=== PATIENT | male | born 1960 | race African-American/Black ===

== ENCOUNTER 2016-08-29 13:53 | Emergency (ER) | payer MEDICARE, MEDICAID ==
[~2016-08-29 13:53] MED LIST: ALBUTEROL17 GM INH; ANTI-HYPERTENSIVE PO; ATENOLOL50 MG PO; DORYX100 MG PO; FLEXERIL10 MG PO; GABAPENTIN300 MG PO; GLUCOPHAGE XR500 M1 PO; JANUVIA50 MG PO; KEFLEX500 M4 PO; LANTUS100 UNITS/ SC; LISINOPRIL-HCT1 EAC2 PO; LISINOPRIL40 MG PO; METFORMIN HCL500 MG PO; NEURONTIN300 M1 PO; NORCO 5-325 TA1 EACH PO; NORCO 5/325 TAB1 TAB PO; NORCO 5/3251 TA1 PO; NORVASC10 MG PO; NOVOLOG MI100 UNITS/; OMEPRAZOLE20 M4 PO; PAROXETINE HCL40 M1 PO; PRAVACHOL40 MG PO; PRAVASTATIN SOD40 M1 PO; PROVENTIL HFA6.7 G1 IH; THERA M PLUS PO; TRAZODONE HCL100 M1 PO; TRAZODONE HCL150 MG PO; ZOFRAN4 M2 PO
[2016-08-30] MEDS ORDERED: AUGMENTIN 875-1 EAC2 PO (12:56)
[2016-08-30] MEDS ORDERED: NORCO 5-325 TA1 EACH PO (12:56)
[2016-12-08] MEDS ORDERED: LANTUS SOL100 UNIT/1 SC (08:33)
[2016-12-08] MEDS ORDERED: NOVOLOG100 UNITS/ (08:33)
[2016-12-08] MEDS ORDERED: AUGMENTIN 875-1 EAC2 PO (09:55)
[2016-12-08] MEDS ORDERED: NORCO 5-325 TA1 EACH PO (09:55)
[2016-12-08] MEDS ORDERED: LISINOPRIL-HCT1 EAC2 PO (09:55)
== END 2016-08-29 18:00 | disposition left against medical advice (07) ==
LOC: EDMED 13:53
DX: Z53.21 Procedure and treatment not carried out due to patient leaving prior to being seen by health care provider (principal)

== ENCOUNTER 2016-08-30 09:59 | Emergency (ER) | payer MEDICARE, MEDICAID ==
[2016-08-30 11:36] LABS: BASO % 0.9 % (0-2); BASO ABSOLUTE COUNT 0.1 tho/cmm (0.0-0.2); EOSINOPHIL ABSOLUTE COUNT 0.2 tho/cmm (0.0-0.7); HCT-HEMATOCRIT 46.7 % (36.0-53.5); HGB-HEMOGLOBIN 16.5 gm/dl (13.5-17.0); IMMATURE GRANULOCYTES ABSOLUTE 0.01 tho/cmm (0-0.03); IMMATURE GRANULOCYTES PERCENT 0.2 % (0-0.3); LYMPH % 47.3 % (20-45); LYMPH ABSOLUTE COUNT 2.6 tho/cmm (0.8-4.5); MCH (MEAN CORPUSCULAR HGB) 34.4 pg (28.0-32.0); MCHC MEAN CORPUSCULAR HGB CONC 35.3 % (32.0-36.0); MCV (MEAN CELL VOLUME) 97.3 fl (82.0-96.0); MEAN PLATELET VOLUME 11.5 cmc (9.4-12.4); MONO % 8.4 % (0-12); MONOCYTE ABSOLUTE COUNT 0.5 tho/cmm (0.0-1.2); NEUTROPHIL ABSOLUTE COUNT 2.1 tho/cmm (1.6-8.0); NEUTROPHIL-AUTOMATED 2.1 tho/cmm (1.6-8.0); NEUTROPHILS % 39.2 % (40-80); PLATELET COUNT 110 tho/cmm (150-450); RED CELL DISTRIBUTION WIDTH 12.4 % (12.4-16.4); WHITE BLOOD COUNT 5.5 tho/cmm (4.0-10.0)
[2016-08-30 11:43] LABS: ANION GAP 10 mmol/L (0-20); BLOOD UREA NITROGEN 16 mg/dl (6-24); CALCIUM 8.8 mg/dl (8.5-10.5); CARBON DIOXIDE-VENOUS 31 mmol/L (22-32); CHLORIDE 104 mmol/l (96-110); CREATININE 1.21 mg/dl (0.60-1.30); GLUCOSE 139 mg/dL (70-110); SODIUM 140 mmol/L (135-145); eGFR VALUE FOR BLACK 77 mL/Min
[2016-08-30 11:48] LABS: POTASSIUM 4.6 mmol/L (3.7-5.1)
[2016-08-30] MEDS ORDERED: NORCO 5-325 TA1 EACH PO (12:56)
[2016-08-30] MEDS ORDERED: AUGMENTIN 875-1 EAC2 PO (12:56)
[2016-12-08] MEDS ORDERED: LANTUS SOL100 UNIT/1 SC (08:33)
[2016-12-08] MEDS ORDERED: NOVOLOG100 UNITS/ (08:33)
[2016-12-08] MEDS ORDERED: NORCO 5-325 TA1 EACH PO (09:55)
[2016-12-08] MEDS ORDERED: LISINOPRIL-HCT1 EAC2 PO (09:55)
[2016-12-08] MEDS ORDERED: AUGMENTIN 875-1 EAC2 PO (09:55)
== END 2016-08-30 13:08 ==
LOC: EDMED 09:59
PROVIDERS: Physician Assistant
DX: R68.84 Jaw pain (principal); E11.9 Type 2 diabetes mellitus without complications; F17.210 Nicotine dependence, cigarettes, uncomplicated; Z79.4 Long term (current) use of insulin
CPT/HCPCS: Q9967

== ENCOUNTER 2016-10-06 07:56 | Emergency (ER) | payer MEDICARE, MEDICAID ==
[~2016-10-06 07:56] MED LIST changes: +AUGMENTIN 875-1 EAC2 PO
[2016-10-06 08:53] LABS: BASO ABSOLUTE COUNT 0.1 tho/cmm (0.0-0.2); EOS % 5.7 % (0-7); EOSINOPHIL ABSOLUTE COUNT 0.3 tho/cmm (0.0-0.7); HCT-HEMATOCRIT 47.1 % (36.0-53.5); HGB-HEMOGLOBIN 16.6 gm/dl (13.5-17.0); LYMPH % 47.5 % (20-45); LYMPH ABSOLUTE COUNT 2.7 tho/cmm (0.8-4.5); MCHC MEAN CORPUSCULAR HGB CONC 35.2 % (32.0-36.0); MCV (MEAN CELL VOLUME) 96.5 fl (82.0-96.0); MEAN PLATELET VOLUME 11.4 cmc (9.4-12.4); MONOCYTE ABSOLUTE COUNT 0.5 tho/cmm (0.0-1.2); NEUTROPHIL ABSOLUTE COUNT 2.2 tho/cmm (1.6-8.0); NEUTROPHIL-AUTOMATED 2.2 tho/cmm (1.6-8.0); NEUTROPHILS % 37.8 % (40-80); PLATELET COUNT 111 tho/cmm (150-450); RED BLOOD COUNT 4.88 mil/cmm (4.40-5.70); RED CELL DISTRIBUTION WIDTH 12.3 % (12.4-16.4); WHITE BLOOD COUNT 5.8 tho/cmm (4.0-10.0)
[2016-10-06 09:18] LABS: ANION GAP 11 mmol/L (0-20); BLOOD UREA NITROGEN 13 mg/dl (6-24); CALCIUM 8.7 mg/dl (8.5-10.5); CARBON DIOXIDE-VENOUS 29 mmol/L (22-32); CHLORIDE 106 mmol/l (96-110); CREATININE 1.17 mg/dl (0.60-1.30); GLUCOSE 74 mg/dL (70-110); POTASSIUM 4.1 mmol/L (3.7-5.1); SODIUM 142 mmol/L (135-145); eGFR VALUE FOR BLACK 80 mL/Min
[2016-10-06] MEDS ORDERED: AUGMENTIN 875-1 EAC2 PO (09:58)
[2016-10-06] MEDS ORDERED: NORCO 5/3251 TAB PO (09:58)
[2016-12-08] MEDS ORDERED: NOVOLOG100 UNITS/ (08:33)
[2016-12-08] MEDS ORDERED: LANTUS SOL100 UNIT/1 SC (08:33)
[2016-12-08] MEDS ORDERED: NORCO 5-325 TA1 EACH PO (09:55)
[2016-12-08] MEDS ORDERED: AUGMENTIN 875-1 EAC2 PO (09:55)
[2016-12-08] MEDS ORDERED: LISINOPRIL-HCT1 EAC2 PO (09:55)
== END 2016-10-06 10:10 ==
LOC: EDMED 07:56
PROVIDERS: Emergency Medicine
DX: K11.20 Sialoadenitis, unspecified (principal); E11.40 Type 2 diabetes mellitus with diabetic neuropathy, unspecified; Z79.4 Long term (current) use of insulin; Z79.899 Other long term (current) drug therapy
CPT/HCPCS: J7030; Q9967

== ENCOUNTER 2016-10-24 12:00 | Emergency (ER) | payer MEDICARE, MEDICAID ==
[~2016-10-24 12:00] MED LIST changes: +NORCO 5/3251 TAB PO
[2016-12-08] MEDS ORDERED: LANTUS SOL100 UNIT/1 SC (08:33)
[2016-12-08] MEDS ORDERED: NOVOLOG100 UNITS/ (08:33)
[2016-12-08] MEDS ORDERED: AUGMENTIN 875-1 EAC2 PO (09:55)
[2016-12-08] MEDS ORDERED: NORCO 5-325 TA1 EACH PO (09:55)
[2016-12-08] MEDS ORDERED: LISINOPRIL-HCT1 EAC2 PO (09:55)
== END 2016-10-24 15:50 | disposition left against medical advice (07) ==
LOC: EDMED 12:00
DX: Z53.21 Procedure and treatment not carried out due to patient leaving prior to being seen by health care provider (principal)